=== PATIENT | male | born 1945 | race Caucasian/White ===

== ENCOUNTER 2022-07-11 18:29 | Emergency (ER) | payer OTHER ==
[~2022-07-11] VITALS: Ht 177.8 cm; Wt 68.5 kg
[2022-07-11] MEDS ORDERED: OMEGA 3-6-9 11200 M1 (20:42)
[2022-07-11] MEDS ORDERED: MEMANTINE (20:42)
[2022-07-11] MEDS ORDERED: ATORVASTATIN CA20 MG (20:42)
[2022-07-11] MEDS ORDERED: ADULT LOW DOSE81 M1 (20:43)
[2022-07-11] MEDS ORDERED: XANAX XR0.5 MG (20:43)
[2022-07-11] MEDS ORDERED: ZESTRIL5 MG (20:43)
[2022-07-11] MEDS ORDERED: ARICEPT10 MG (20:43)
[2022-07-11] MEDS ORDERED: D3 + K2 DOTS 11 EACH (20:43)
== END 2022-07-12 00:52 | disposition home or self-care (01) ==
LOC: ER 18:29
DX: S50.812A Abrasion of left forearm, initial encounter (principal); S50.811A Abrasion of right forearm, initial encounter; W20.8XXA Other cause of strike by thrown, projected or falling object, initial encounter; Y93.31 Activity, mountain climbing, rock climbing and wall climbing; Y92.832 Beach as the place of occurrence of the external cause; F03.90 Unspecified dementia, unspecified severity, without behavioral disturbance, psychotic disturbance, mood disturbance, and anxiety

== ENCOUNTER 2024-09-30 20:35 | Inpatient (IN) | payer OTHER ==
[~2024-09-30] VITALS: Ht 180.3 cm; Wt 79.4 kg
[~2024-09-30 20:35] MED LIST: ADULT LOW DOSE81 M1; ARICEPT10 MG; ATORVASTATIN CA20 MG; D3 + K2 DOTS 11 EACH; MEMANTINE; OMEGA 3-6-9 11200 M1; XANAX XR0.5 MG; ZESTRIL5 MG
[2024-10-01] MEDS ORDERED: NITROGLYCERIN IN 5 % DEXTROSE 50 MG/250 ML BOTTLE IV ONE (06:30)
[2024-10-01] MEDS ORDERED: FAMOTIDINE/PF 20 MG/2 ML VIAL IV SCH (19:57)
[2024-10-01] MEDS ORDERED: ATORVASTATIN CALCIUM 40 MG TABLET PO SCH (19:57)
[2024-10-01] MEDS ORDERED: DONEPEZIL HCL 10 MG TABLET PO SCH (19:57)
[2024-10-01] MEDS ORDERED: 0.9 % SODIUM CHLORIDE 1,000 ML IV PUSH SCH (19:57)
[2024-10-01] MEDS ORDERED: ASPIRIN 325 MG TABLET PO ONE (19:57)
[2024-10-01] MEDS ORDERED: NITROGLYCERIN IN 5 % DEXTROSE 250 ML IV SCH (19:57)
[2024-10-01] MEDS ORDERED: ENOXAPARIN SODIUM 80 MG/0.8 ML SYRINGE SUBCUTANEO SCH (19:57)
[2024-10-01] MEDS ORDERED: TICAGRELOR 90 MG TABLET PO ONE (19:57)
[2024-10-01] MEDS ORDERED: MEMANTINE HCL 10 MG TABLET PO SCH (19:57)
[2024-10-01] MEDS ORDERED: ENOXAPARIN SODIUM 80 MG/0.8 ML SYRINGE SUBCUTANEO ONE (20:57)
[2024-10-01] MEDS ORDERED: FAMOTIDINE/PF 20 MG/2 ML VIAL ONE (20:58)
[2024-10-02] MEDS ORDERED: TICAGRELOR 90 MG TABLET PO SCH (09:00)
[2024-10-02] MEDS ORDERED: ASPIRIN 81 MG TAB.CHEW PO SCH (09:00)
[2024-10-02 14:54] VITALS: BP 163/64
[2024-10-02] MEDS ORDERED: HALOPERIDOL LACTATE 5 MG/ML AMPUL IV PRN (16:30)
[2024-10-02 17:57] VITALS: BP 171/87
[2024-10-02 20:00] VITALS: O2SAT 98
[2024-10-03] VITALS (9 sets, daily range): BP systolic 147–181; BP diastolic 64–81; O2SAT 96–99
[2024-10-03] MEDS ORDERED: LISINOPRIL 5 MG TABLET PO SCH (09:00)
[2024-10-03] MEDS ORDERED: CARVEDILOL 3.125 MG TABLET PO SCH (17:03)
[2024-10-03] MEDS ORDERED: AMLODIPINE BESYLATE 5 MG TABLET PO NR (18:00)
[2024-10-04] VITALS (9 sets, daily range): BP systolic 125–157; BP diastolic 64–76; O2SAT 97–99
[2024-10-04] MEDS ORDERED: AMLODIPINE BESYLATE 5 MG TABLET PO SCH (09:00)
[2024-10-05 00:30] VITALS: O2SAT 96
[2024-10-05 00:54] VITALS: BP 131/70
[2024-10-05 05:35] VITALS: O2SAT 97
[2024-10-05 07:38] VITALS: O2SAT 97
[2024-10-05] MEDS ORDERED: AMLODIPINE BESYLATE 10 MG TABLET PO SCH (09:00)
[2024-10-05] MEDS ORDERED: ENOXAPARIN SODIUM 40 MG/0.4 ML SYRINGE SUBCUTANEO SCH (09:00)
[2024-10-05 09:12] VITALS: BP 146/82; O2SAT 97
[2024-10-05] MEDS ORDERED: LISINOPRIL5 MG PO (11:08)
[2024-10-05] MEDS ORDERED: LIPITOR40 M1 PO (11:08)
[2024-10-05] MEDS ORDERED: AMLODIPINE BESY10 MG PO (11:08)
[2024-10-05] MEDS ORDERED: HALOPERIDOL5 MG/1 M1 IV (11:09)
[2024-10-05] MEDS ORDERED: Namenda 10MG TABLET PO (11:09)
[2024-10-05 12:00] VITALS: O2SAT 99
== END 2024-10-05 15:09 | disposition home or self-care (01) | DRG 305 ==
LOC: ER 20:35 → ICU-2 10-01 19:53 → MEDJ 10-02 12:56 → MEDI 10-02 18:47 → SEC-K 10-02 19:28 → MEDJ 10-02 19:29
PROVIDERS: ADMIT Student in an Organized Health Care Education/Training Program; ATTEND Student in an Organized Health Care Education/Training Program
PROC: B246ZZZ Ultrasonography of Right and Left Heart (ICD-10-PCS; principal; 2024-10-02)
PROC: 4A12X4Z Monitoring of Cardiac Electrical Activity, External Approach (ICD-10-PCS; 2024-10-02)
DX: I16.9 Hypertensive crisis, unspecified (principal); I20.9 Angina pectoris, unspecified; E78.5 Hyperlipidemia, unspecified; Z95.1 Presence of aortocoronary bypass graft